=== PATIENT | male | born 1940 | race Caucasian/White ===

== ENCOUNTER 2022-10-21 05:32 | Inpatient (IN) | payer MEDICARE, OTHER, SELFPAY ==
[2022-10-21] VITALS (45 sets, daily range): BP systolic 114–177; BP diastolic 55–102; PULSE 76–106; RESP 14–23; TEMP 36.8–37.4; O2SAT 88–95; BMI 27.4
--- NOTE | 2022-10-21 05:41 | P.HP_ITS ---
Providers/Chief Complaint Admitting Physician: Ruma Brown MD Primary Care Provider: Dr Errol Richard Chief Complaint: UGIB History of Present Illness Quirino Avalos is a 82 year old male who presented to [facility] emergency room with complaint of nausea, vomiting with coffee-ground emesis for a couple of days. He has also had abdominal discomfort. He does have a history of gastroesophageal reflux disease and takes an [id number]-[id number] PPI for this. For the last few days he has been having abdominal pain in the epigastric region that has been escalating in severity. He has had multiple episodes, maybe 6-7, of coffee-ground emesis per day. No bright red blood has been noted. He has never had anything similar before. He is not on any chronic anticoagulation. At the outside facility he was tachycardic on arrival and was subsequently noted to be significantly orthostatic. Supine blood pressure 150/95 and pulse 106 Sitting blood pressure was 132/73 with pulse 117 Standing blood pressure 89/50 with pulse 125 He was given IV fluids and IV PPI. Heart rate improved to around 100. Request was made for transfer for endoscopy and further care as indicated. He has chronic constipation and benign prostatic hypertrophy. Has not had a bowel movement since but that timeframe is not unusual for him. Denies use of NSAID therapy beyond baby aspirin. The pain in his epigastric region is fairly constant. Currently that is his only complaint. He has not been sleeping well because of his symptoms. He has had significant dizziness particularly with standing or walking around. He also describes dyspnea on exertion. There is an element of this chronically but has been worse lately. Urinary symptoms including difficulty initiating stream of urine and dribbling of urine are at baseline. He wears diapers because of constant leakage. Denies chest pain other than epigastric discomfort. He has not had any falls. No report of any fevers. He does chew tobacco but denies swallowing any of it recently. He spits it out. Him and his at first thought that the coffee- ground appearance could be secondary to his chewing tobacco but he said it was different. Review of Systems General: Reports: Other (ROS as per HPI or as otherwise noted here) Medications/Allergies Allergies Allergy/AdvReac Type Severity Reaction Status Date / Time lisinopril Allergy Unknown Verified 10/21/22 05:59 simvastatin Allergy Unknown Verified 10/21/22 05:59 PFSH Acute PFSH: Medical History (Updated 10/21/22 @ 08:51 by Ruma Brown MD) Benign prostatic hyperplasia with lower urinary tract symptoms Chronic constipation Chronic kidney disease Depression GERD (gastroesophageal reflux disease) History of pulmonary embolus (PE) 2018 History of renal cell cancer History of shingles Hyperlipidemia Hypertension Osteoarthritis Surgical History (Updated 10/21/22 @ 06:15 by Ruma Brown MD) History of appendectomy History of foot surgery History of hernia repair History of nephrectomy right Social History (Updated 10/21/22 @ 06:29 by Ruma Brown MD) Smoking and tobacco status: current every day smoker smokeless tobacco Smokeless tobacco user: chewing tobacco Alcohol intake: former Substance/Drug Use: never Marital status: Vitals/I&O/Wt Blood pressure 157/92 supine, pulse 96, oxygen saturation 91% on room air, respirations 12 Physical Exam Narrative: Patient is awake and alert, able to provide history. Normocephalic, extraocular movements are intact, oropharynx with moist mucous membranes. Neck is supple. Lungs are clear. Cardiovascular exam reveals a regular rate and rhythm. Abdomen is soft. Epigastric tenderness is noted. No palpable masses. Positive bowel sounds. Extremities no pitting edema or calf tenderness. Pulses are 2+ and equal x4. Speech clear, face symmetric, moves all extremities Data 10/21/22 06:40 Other Labs: Labs from outside facility are as follows: White count 18,000, hemoglobin 12.8, hematocrit 38.5, platelet count 378, INR 1.0, PTT 28.3 Troponin I 0.018, CK-MB 1.8, CPK 124 Sodium 133, potassium 4.0, chloride 97, CO2 26, glucose 147, BUN 35, creatinine 1.4, total protein 8.1, albumin 4.8, globulin 3, calcium 9.9, total bilirubin 0.8, alkaline phosphatase 105, AST 30, ALT 24, osmolality 287, estimated GFR 51, lipase 33 Flat and upright KUB with no air-fluid levels or free air, stool noted in the bowel along with clips from right nephrectomy visualized A&P Assessment and plan (1) Upper GI bleed: Several days of coffee-ground emesis now associated with significant orthostas is, dizziness and general malaise. Hemoglobin is 12.8 presently. (2) Orthostasis: Severe with more than 60 mmHg drop from supine to sitting position (3) GERD (gastroesophageal reflux disease): Chronically on PPI (4) Hypertension: Not on chronic treatment (5) Chronic kidney disease: Chronic kidney disease stage IIIa from available information notable because he only has a single kidney (6) Single kidney: Secondary to history of renal cell carcinoma leading to right nephrectomy (7) Benign prostatic hyperplasia with lower urinary tract symptoms: On chronic Flomax and finasteride with continued lower urinary tract symptoms (8) Chronic constipation: Has lactulose as needed for management (9) Nicotine dependence, chewing tobacco, uncomplicated: Plan Leukocytosis, may be reactive/translocation but given history of BPH could also be urine infection Inpatient admission N.p.o. IV PPI Surgical consultation for EGD Repeat hemoglobin here IV fluids Recheck orthostatics Given severity of orthostasis presently, monitoring blood pressures presently and avoiding overuse of antihypertensive agents Repeat chemistries in the morning Monitor renal function closely and avoid renal toxic medications Currently home Flomax and finasteride are held due to n.p.o. status Dean catheter as he is unable to urinate without standing up and with severe orthostasis I do not want him attempting to stand presently Check urinalysis EKG preprocedure Will need to address constipation but currently n.p.o. and will await surgical evaluation Supportive care otherwise Findings, concerns and plans were discussed with patient and his and both were given an opportunity to ask questions VTE prophylaxis: SCDs, no pharmacological DVT prophylaxis secondary to upper GI bleed GI Prophylaxis: IV PPI Telemetry: Currently ordered for close monitoring given sinus tachycardia and orthostasis Dean: Ordered secondary to degree of orthostasis and BPH Line(s): Peripheral IVs Disposition plan: Anticipate discharge home with close outpatient follow-up to Dr. Richard, his primary care provider as well as possibly general surgery depending on clinical course with potential adjustment in PPI dosing plus or minus additional GI agents Code Status: Full code Attestations Medical Necessity Statement*: Anticipated stay greater than two midnights in this 82-year-old gentleman with several days of coffee-ground emesis now with significant orthostasis and epigastric pain concerning for ulcerative disease. Although hemoglobin is currently normal range, at high risk for rapid drop in hemoglobin with continued vomiting and progression of GI pathology. Given single kidney, also at risk of acute on chronic kidney disease and associated morbidity from this with ongoing hypotension. Plans are as noted. and Moderate Time for a total of 60 minutes, includes reviewing past or interval history, examining/interviewing patient, placing orders, discussing plan of care with staff and documenting encounter Diagnoses Upper GI bleed K92.2 Orthostasis I95.1 GERD (gastroesophageal reflux disease) K21.9 Hypertension I10 Chronic kidney disease N18.9 Single kidney Z90.5 Benign prostatic hyperplasia with lower urinary tract symptoms N40.1 Chronic constipation K59.09 Nicotine dependence, chewing tobacco, uncomplicated F17.220
[2022-10-21 06:50] LABS: Basophils % 0.2 %; Hematocrit 36.3 % (42.0-52.0); Hemoglobin 11.8 g/dL (11.7-16.6); Lymphocytes # 1.6 10^3/uL (0.8-4.8); Mean Corpuscular HGB Conc 32.5 g/dL (30.0-36.0); Mean Corpuscular Hemoglobin 27.5 pg (28.0-34.0); Mean Corpuscular Volume 84.6 fl (80-94); Mean Platelet Volume 9.8 fL (7.4-10.4); Neutrophils # 14.58 10^3/uL (1.8-7.7); Neutrophils % 84.4 %; Nucleated Red Blood Cells % 0 %; Platelet Count 332 10^3/cmm (130-400); Red Blood Count 4.29 10^6/uL (4.1-5.3); Red Cell Distribution Width 14.8 % (12.1-15.1); White Blood Count 17.3 10^3/uL (4.0-10.0)
--- NOTE | 2022-10-21 07:25 | PC.NURSE ---
Patient arrived at the ICU bed 3 at 0520. Vital signs were stable on arrival and report was received.
--- NOTE | 2022-10-21 09:08 | PC.PHAR ---
pt and pts states the pt takes the medications entered-pt and pts states the pts dr shaw rabeprazole 20mg daily filled 09/14/22 30d/s,finasteride 5mg hs filled 09/06/22 30d/s-melatonin 10mg hs filled 08/16/22 120d/s-mirtazapine 15mg filled 08/14/22 30d/s-pepcid 40mg daily filled 07/20/22 30d/s and prozac 10mg daily filled 06/10/22 90d/s states the dr shaw 3 weeks ago-
--- NOTE | 2022-10-21 10:04 | ECG_ITS ---
[facility] Test Date: 2022-10-21 Pat Name: Quirino Avalos Department: Room: ICU03 Gender: Male Video Library Assistant: : 1940 Requested By: Ruma Brown Order Number: [id number] Donnie MD: Genoveva Irwin M.D. Measurements Intervals [place] Rate: 87 P: 22 OR: 210 QRS: 4 QRSD: 86 T: 80 QT: 378 QTc: 457 Interpretive Statements SINUS RHYTHM WITH FIRST DEGREE AV BLOCK NONSPECIFIC T-WAVE ABNORMALITY No previous ECG available for comparison Electronically Signed On 10-21-2022 11:09:19 CDT by Genoveva Irwin M.D. [id number]
--- NOTE | 2022-10-21 10:20 | PM.CONSULT ---
Providers/Reason For Consult Consulting Physician/Specialty*: Dr. Thomas Roberts DO/General surgery Reason for Consult*: Hematemesis Attending Physician: Errol Shafer MD Primary Care Provider: Errol Richard History of Present Illness History of Present Illness Quirino Avalos is a 82 year old male who presented to the hospital with a 1 day history of coffee-ground emesis. He reports that he was having heartburn for the last 5 days. He denies any abdominal pain, diarrhea, constipation, hematochezia and/or melena. Review of Systems General: Reports: 10 or more systems reviewed and unremarkable except in HPI and below Medications/Allergies Home Medications Medication Instructions Recorded Confirmed Last Taken Type aspirin 81 mg tablet,delayed 81 mg PO QAM 10/21/22 10/21/22 Unknown History release calcium carbonate 750 1 tab PO TID PRN Heartburn 10/21/22 10/21/22 Unknown History mg-simethicone 80 mg chewable tablet ([place] [facility]burn-Gas) lactulose 10 gram/15 mL oral 15 ml PO DAILY PRN Constipation 10/21/22 10/21/22 Unknown History solution tamsulosin 0.4 mg capsule 0.4 mg PO BEDTIME 10/21/22 10/21/22 Unknown History Allergies Allergy/AdvReac Type Severity Reaction Status Date / Time lisinopril Allergy Unknown Verified 10/21/22 05:59 simvastatin Allergy Unknown Verified 10/21/22 05:59 PFSH Acute PFSH: Medical History (Updated 10/21/22 @ 10:21 by Thomas Roberts DO) Benign prostatic hyperplasia with lower urinary tract symptoms Chronic constipation Chronic kidney disease Depression GERD (gastroesophageal reflux disease) History of pulmonary embolus (PE) 2018 History of renal cell cancer History of shingles Hyperlipidemia Hypertension Osteoarthritis Surgical History (Updated 10/21/22 @ 06:15 by Ruma Brown MD) History of appendectomy History of foot surgery History of hernia repair History of nephrectomy right Social History (Updated 10/21/22 @ 06:29 by Ruma Brown MD) Smoking and tobacco status: current every day smoker smokeless tobacco Smokeless tobacco user: chewing tobacco Alcohol intake: former Substance/Drug Use: never Marital status: Vitals/I&O/Wt Last Vital Signs Temp 98.2 F 10/21/22 05:42 Pulse 102 H 10/21/22 06:00 Resp 17 10/21/22 05:42 BP 155/92 10/21/22 05:42 Pulse Ox 92 10/21/22 05:42 O2 Del Method Room Air 10/21/22 05:43 Weight last 48 hrs Weight 208 lb 3 oz Weight 208 lb 3 oz Physical Exam Narrative: General : Patient is well developed , no acute distress, oriented x3 Head : Normal cephalic, a-traumatic. Ears : Pinnae and external canal are normal. Hearing is normal. Eyes : PERRLA, Sclera and injection are normal. No conjunctival discharge. Nose : Mucous membranes are without erythema. Throat : buccal mucosa is normal, gums are without significant recession or hypertrophy. Lungs : Equal chest rise bilaterally, no use of accessory muscles, trachea is midline. Cor : Rate and rhythm are normal. Abdomen : Soft, ND, NT, no g/r/m Extremities : No edema, no cyanosis or clubbing, dorsalis pedis pulses are present bilaterally, non-tender to palpation of calves. Upper extremities are normal bilaterally. Back : non-tender to palpation, no CVA tenderness. Neuro : CN II - XII intact, Upper and lower extremities have equal and full strength Urinary Catheter Management: Dean: Cath Placed During This Visit: yes Urinary Catheter Date of Insertion: 10/21/22 Urinary Catheter Time of Insertion: 07:45 Data 10/21/22 06:40 A&P Assessment and plan (1) Hematemesis: Plan EGD The risks and benefits of the procedure, including bleeding, infection, intestinal perforation requiring surgery, missed lesion were explained to the patient. The patient is understanding of the risks and wishes to proceed. Coding Level of Care Code 40476 Diagnoses Hematemesis K92.0
[2022-10-21] MEDS: sodium chloride 0.9% 1,000 ML 30 ML IV (10:24)
--- NOTE | 2022-10-21 10:54 | PC.NURSE ---
Pt back to ICU from GI Lab. EGD completed. VSS.
[2022-10-21] MEDS: sodium chlor 0.9% + KCl 20 mEq 20 MEQ/1,000 ML BAG 125 MEQ IV ×2 (11:04→19:35)
[2022-10-21] MEDS: sucralfate 1 gm/10 mL Oral Liq UDC PO ×3 (11:05→22:41)
[2022-10-21 11:12] LABS: Add Urine Microscopic? YES; Bilirubin Urine Neg (Negative); Blood Urine 2+ (Negative); Glucose Urine UA Norm (Normal); Ketones Urine 1+ (Negative); Leukocyte Esterase Urine Negative (Negative); Nitrate Urine Negative (Negative); Protein Urine 1+ (Negative); Specific Gravity, Urine 1.015 (1.005-1.030); Urine Appearance Clear (CLEAR); Urine Color Yellow (Yellow); Urobilinogen Urine Norm (Negative); pH Urine 6 (5-7)
[2022-10-21 11:13] LABS: Add Urine Culture? No; Bacteria Urine TRACE /hpf; Squamous Epithelial Cell Urine 0-4 /hpf (0-5)
[2022-10-21 12:28] LABS: Hematocrit 35.2 % (42.0-52.0); Hemoglobin 11.3 g/dL (11.7-16.6)
[2022-10-21] MEDS: alum-mag-hydroxide-sime 30 mL UDC PO (14:14)
[2022-10-21] MEDS: pantoprazole 40 mg SDV 80 MG IVP (14:15)
--- NOTE | 2022-10-21 16:44 | ANES.PREANE2 ---
Pre-Anesthetic Assessment Height/Weight: Height 1.85 m Weight 94.432 kg Temp Pulse Resp BP Pulse Ox O2 Del Method O2 Flow Rate 99.2 F 85 21 H 155/86 90 Room Air 5 10/21/22 14:00 10/21/22 16:00 10/21/22 16:00 10/21/22 16:00 10/21/22 16:00 10/21/22 16:00 10/21/22 13:05 Operation Date: 10/21/22 10:30 Proposed Procedures p EGD(Not Applicable) - Thomas Roberts DO Familial anesthetic complications: none Was Beta Cristiana taken within 24 hours: N/A Was Clonidine taken within 24 hours: N/A Social Tobacco and No alcohol Exam alert, oriented x 3, clear to auscultation bilaterally and regular rate & rhythm Airway Submandibular: within normal limits Cervical ROM: within normal limits Mallampati: Class II Dentition: false (upper) Pulmonary Chronic Obstructive Pulmonary Disease CV/HEM Anemia and Hypertension Chronic Renal Insufficiency GI GI bleed Anesthetic Plan ASA status: 3 Anesthesia: MAC Medications/Allergies Home Medications Medication Instructions Recorded Confirmed Last Taken Type aspirin 81 mg tablet,delayed 81 mg PO QAM 10/21/22 10/21/22 Unknown History release calcium carbonate 750 1 tab PO TID PRN Heartburn 10/21/22 10/21/22 Unknown History mg-simethicone 80 mg chewable tablet ([place] Heartburn-Gas) lactulose 10 gram/15 mL oral 15 ml PO DAILY PRN Constipation 10/21/22 10/21/22 Unknown History solution tamsulosin 0.4 mg capsule 0.4 mg PO BEDTIME 10/21/22 10/21/22 Unknown History Allergies Allergy/AdvReac Type Severity Reaction Status Date / Time lisinopril Allergy Unknown Verified 10/21/22 05:59 simvastatin Allergy Unknown Verified 10/21/22 05:59 Current Medications Generic Name Dose Route Start Last Admin Trade Name Freq PRN Reason Stop Dose Admin Al Hydrox/Mg Hydrox/Simethicone 30 ml 10/21/22 13:25 10/21/22 14:14 Ugrg-Wca-Zbbxoqpso-Peewee 30 Ml Udc PO 30 ml Q4H PRN Administration INDIGESTION Potassium Chloride/Sodium Chloride 20 meq in 1,000 mls @ 125 mls/hr 10/21/22 09:00 10/21/22 11:04 Sodium Chlor 0.9% + Kcl 20 Meq IV 125 mls/hr .Q8H COONR Administration Sodium Chloride 1,000 mls @ 30 mls/hr 10/21/22 10:15 10/21/22 10:45 Sodium Chloride 0.9% IV 10/22/22 10:14 Infused .Q24H CONOR Infusion Pantoprazole Sodium 80 mg 10/21/22 14:00 10/21/22 14:15 Pantoprazole 40 Mg Sdv IVP 80 mg Q12H CONOR Administration Sucralfate 1 gm 10/21/22 11:00 10/21/22 11:05 Sucralfate 1 Gm/10 Ml Oral Liq Udc PO 1 gm AC&BEDTIME CONOR Administration PFSH Anesthesia Medical History (Updated 10/21/22 @ 10:21 by Thomas Roberts DO) Benign prostatic hyperplasia with lower urinary tract symptoms Chronic constipation Chronic kidney disease Depression GERD (gastroesophageal reflux disease) History of pulmonary embolus (PE) 2018 History of renal cell cancer History of shingles Hyperlipidemia Hypertension Osteoarthritis Surgical History (Updated 10/21/22 @ 06:15 by Ruma Brown MD) History of appendectomy History of foot surgery History of hernia repair History of nephrectomy right Social History (Updated 10/21/22 @ 06:29 by Ruma Brown MD) Smoking and tobacco status: current every day smoker smokeless tobacco Smokeless tobacco user: chewing tobacco Alcohol intake: former Substance/Drug Use: never Marital status: Data Anesthesia 10/21/22 12:21 Short CBC 10/21/22 10/21/22 Range/Units 06:40 12:21 WBC 17.3 H (4.0-10.0) 10^3/uL Hgb 11.8 11.3 L (11.7-16.6) g/dL Hct 36.3 L 35.2 L (42.0-52.0) % MCV 84.6 (80-94) fl Plt Count 332 (130-400) 10^3/cmm Neut % (Auto) 84.4 % Neut # (Auto) 14.58 H (1.8-7.7) 10^3/uL Urine 10/21/22 Range/Units 09:00 Urine Color Yellow (Yellow) Urine Appearance Clear (CLEAR) Urine pH 6 (5-7) Ur Specific [place] 1.015 (1.005-1.030) Urine Protein 1+ H (Negative) Urine Glucose (UA) Norm (Normal) Urine Ketones 1+ H (Negative) Urine Nitrate Negative (Negative) Urine Bilirubin Neg (Negative) Ur Leukocyte Esterase Negative (Negative) Urine RBC 5-10 H (0-2) /hpf Urine WBC None (0-5) /hpf Blood Bank 10/21/22 07:24 Blood Type O Positive Rho(D) Type Positive Antibody Screen Negative Cardiac Studies: No Data to Display
--- NOTE | 2022-10-21 16:47 | ANE.PACU2 ---
Inpatient post-anesthesia follow up: Airway intact: Yes Vital signs: Temperature 99.2 F Pulse Rate 85 Respiratory Rate 21 Blood Pressure 155/86 Pulse Oximetry 90 Oxygen Delivery Me thod Room Air Oxygen Flow Rate 5 Fraction of Inspir ed Oxygen Hydration adequate: Yes Nausea and vomiting: No Pain level: 2 Mental status: Baseline
[2022-10-21 18:13] LABS: Hematocrit 34.3 % (42.0-52.0)
--- NOTE | 2022-10-21 19:43 | PC.NURSE ---
Chest Pain: Pt reporting 3/10 pain in the center of his chest @approximately 1920. EKG preformed and printed copy placed in paper chart. Pain improved when raising the head of the bed.
--- NOTE | 2022-10-21 19:45 | PC.NURSE ---
Shift summary: Pt has rested in bed throughout shift. No complaints of nausea or vomiting. He did have EGD completed today, See EMR for findings. Pt has complained of heartburn since procedure. He was started on Sucralfate. he is also on Protonix. Maalox PRN was started today. After receiving a dose of Maalox with the Protonix that was due, pt did state his heartburn lessened. No coffee grounds emesis or melana stools this shift. VSS. he remains on room air with clear lungs. Sinus rhythm noted on monitor. He has tolerated being NPO well this shift. Dean cath inserted this am, significant amount of resistance met on insert. Pt tolerated well. His urinary output this shift was 1925. His is at bedside.
[2022-10-22] VITALS (28 sets, daily range): BP systolic 104–181; BP diastolic 46–102; PULSE 64–96; RESP 15–32; TEMP 36.8–37.1; O2SAT 90–95
[2022-10-22] MEDS: pantoprazole 40 mg SDV 80 MG IVP (02:41)
[2022-10-22] MEDS: sodium chlor 0.9% + KCl 20 mEq 20 MEQ/1,000 ML BAG 125 MEQ IV (03:25)
[2022-10-22 05:00] LABS: Basophils % 0.3 %; Eosinophils # 0.1 10^3/uL (0.0-0.8); Eosinophils % 0.6 %; Hematocrit 30.6 % (42.0-52.0); Hemoglobin 9.7 g/dL (11.7-16.6); Lymphocytes # 1.9 10^3/uL (0.8-4.8); Lymphocytes % 17.1 %; Mean Corpuscular HGB Conc 31.7 g/dL (30.0-36.0); Mean Corpuscular Hemoglobin 27.4 pg (28.0-34.0); Mean Corpuscular Volume 86.4 fl (80-94); Mean Platelet Volume 10.5 fL (7.4-10.4); Monocytes # 1.1 10^3/uL (0.2-0.9); Monocytes % 10.1 %; Neutrophils # 7.95 10^3/uL (1.8-7.7); Neutrophils % 71.6 %; Nucleated Red Blood Cells % 0 %; Platelet Count 237 10^3/cmm (130-400); Red Blood Count 3.54 10^6/uL (4.1-5.3); Red Cell Distribution Width 15.3 % (12.1-15.1); White Blood Count 11.1 10^3/uL (4.0-10.0)
[2022-10-22 05:20] LABS: Anion Gap 13.3 (5-19); Blood Urea Nitrogen 30 mg/dL (8-23); Calcium 8.3 mg/dL (8.5-10.5); Carbon Dioxide 22 mmol/L (22-29); Chloride 105 mmol/L (98-107); Glucose 101 mg/dL (65-115); Osmolality Calculated 288 mOsm/kg (285-295); Potassium 4.3 mmol/L (3.5-5.1); Sodium 136 mmol/L (136-145)
[2022-10-22] MEDS: sucralfate 1 gm/10 mL Oral Liq UDC PO ×4 (06:15→20:15)
[2022-10-22] MEDS: pantoprazole 40 mg SDV IVP ×2 (09:28→20:15)
--- NOTE | 2022-10-22 09:34 | PM.PN ---
Subjective Subjective: Patient reports persistent epigastric discomfort overnight but states it is improved from prior. He is currently pain-free at the moment. Per report, he still orthostatic upon standing. Denies further hematemesis/coffee-ground emesis. Patient denies fevers, chills, nausea or emesis. Spouse is bedside and supportive. Medications: Reviewed: Yes Vitals/I&O/Wt Last Vital Signs Temp 98.2 F 10/21/22 20:00 Pulse 70 10/22/22 08:00 Resp 24 H 10/22/22 08:00 BP 149/74 10/22/22 08:00 Pulse Ox 94 10/22/22 08:00 O2 Del Method Room Air 10/22/22 08:00 O2 Flow Rate 2 10/22/22 04:00 10/21/22 10/22/22 10/22/22 22:59 06:59 14:59 Intake Total 1000 / 1250 979.167 / 2229.167 Output Total 1925 / 1925 800 / 2725 Balance -925 / -675 179.167 / -495.833 Weight last 48 hrs Weight 95.98 kg Weight 94.432 kg Weight 94.432 kg Physical Exam Narrative: General: Patient is awake. Alert. Head: Normocephalic. Atraumatic. EOM intact. Neck: No JVD. Cardiovascular: RRR. No gallops. No murmurs. Lungs: Breath sounds are slightly diminished in the bases, no use of accessory muscles, no crackles or wheezes. Skin: No jaundice. No rashes. Abdomen: Normal bowel sounds, abdomen soft and nontender. Extremities: No cyanosis or clubbing. Musculoskeletal: No swollen or erythematous joints. Neurological: Moves all 4 extremities. No myoclonus. Urinary Catheter Management: Dean: Cath Placed During This Visit: yes Reason for Continuing Indwelling Catheter: Accurate Measurement of Urinary Output in Critically Ill Patients Urinary Catheter Date of Insertion: 10/21/22 Urinary Catheter Time of Insertion: 07:45 Data 10/22/22 04:01 10/22/22 04:01 A&P Assessment and plan (1) Upper GI bleed: Associated with acute blood loss anemia General surgery evaluated, appreciate recommendations Status post EGD revealing esophagitis Hemoglobin at 9.7 Continue IV PPI Continue Carafate Antiemetics and analgesics as needed Holding home aspirin Advance diet if okay with general surgery Continue IV fluids until diet starts (2) Orthostasis: Secondary to hypovolemia from blood loss Repeat orthostatics today Therapy evaluation Fall precautions Strict I's and O's Daily weights (3) GERD (gastroesophageal reflux disease): PPI as above (4) Hypertension: Not on home pharmacological treatment Orthostatic (5) Chronic kidney disease: Single kidney CKD stage IIIa Creatinine at baseline Renally dose medications Avoid nephrotoxins (6) Single kidney: Secondary to right nephrectomy from RCC (7) Benign prostatic hyperplasia with lower urinary tract symptoms: Holding Flomax due to orthostasis Continue Dean for now (8) Chronic constipation: Lactulose as needed (9) Nicotine dependence, chewing tobacco, uncomplicated: Would benefit from cessation Plan DVT ppx: SCD Code status: Full Attestations Medical Necessity Statement*: Patient requires ongoing hospitalization for IV PPI, carafate, labs monitoring, telemetry, IV fluids, electrolyte management, therapy evaluation, and supportive care. Coding Level of Care Code Acute Code for [facility] Fwd Diagnoses Upper GI bleed K92.2 Orthostasis I95.1 GERD (gastroesophageal reflux disease) K21.9 Hypertension I10 Chronic kidney disease N18.9 Single kidney Z90.5 Benign prostatic hyperplasia with lower urinary tract symptoms N40.1 Chronic constipation K59.09 Nicotine dependence, chewing tobacco, uncomplicated F17.220
[2022-10-22] MEDS: acetaminophen 650 mg/20.3 mL UDC 1000 MG PO (12:22)
[2022-10-22] MEDS: dextrose 5%-sod chloride 0.45% 1,000 ML 75 ML IV (17:07)
[2022-10-22] MEDS: ondansetron 2 mg/ML SDV 2 mL 4 MG IVP (18:21)
[2022-10-22] MEDS: oxyCODONE 5 mg IR Tab/Cap PO (23:11)
[2022-10-23] VITALS (30 sets, daily range): BP systolic 117–177; BP diastolic 62–101; PULSE 60–92; RESP 16–35; TEMP 36.6–37.1; O2SAT 88–97
[2022-10-23] MEDS: oxyCODONE 5 mg IR Tab/Cap PO ×3 (04:05→21:13)
[2022-10-23 05:27] LABS: Basophils % 0.4 %; Eosinophils # 0.3 10^3/uL (0.0-0.8); Eosinophils % 3.2 %; Hematocrit 30.4 % (37-53); Lymphocytes # 1.9 10^3/uL (0.8-4.8); Lymphocytes % 18.9 %; Mean Corpuscular HGB Conc 31.9 g/dL (30-55); Mean Corpuscular Hemoglobin 27.6 pg (27-33); Mean Corpuscular Volume 86.6 fl (82-101); Mean Platelet Volume 10.2 fL (7.4-10.4); Monocytes # 1.1 10^3/uL (0.2-0.9); Monocytes % 10.7 %; Neutrophils # 6.47 10^3/uL (1.8-7.7); Neutrophils % 66.3 %; Nucleated Red Blood Cells % 0 %; Platelet Count 253 10^3/cmm (157-399); Red Blood Count 3.51 10^6/uL (3.85-5.65); Red Cell Distribution Width 14.9 % (12.1-15.1); White Blood Count 9.77 10^3/uL (3.29-11.43)
[2022-10-23 05:58] LABS: Albumin Level 3.7 g/dL (3.5-5.2); Anion Gap 14.8 (5-19); Blood Urea Nitrogen 20 mg/dL (8-23); Calcium 8.2 mg/dL (8.5-10.5); Carbon Dioxide 20 mmol/L (22-29); Chloride 104 mmol/L (98-107); Glucose 114 mg/dL (65-115); Phosphorus 2.3 mg/dL (2.5-4.5); Potassium 3.8 mmol/L (3.5-5.1); Sodium 135 mmol/L (136-145)
[2022-10-23] MEDS: dextrose 5%-sod chloride 0.45% 1,000 ML 75 ML IV (06:16)
[2022-10-23] MEDS: sucralfate 1 gm/10 mL Oral Liq UDC PO ×4 (06:18→21:11)
[2022-10-23] MEDS: pantoprazole 40 mg SDV IVP ×2 (08:58→21:11)
[2022-10-23] MEDS: acetaminophen 650 mg/20.3 mL UDC 1000 MG PO (09:39)
[2022-10-23 10:49] LABS: Iron 37 ug/dL (59-158); Percent Saturation 12.5 % (20-50); Total Iron Binding Capacity 296 mcg/dl; Unsaturated Iron Binding 259 ug/dL (112-347); Vitamin B12 613 pg/mL (232-1245)
[2022-10-23] MEDS: amlodipine 5 mg Tablet PO (11:21)
[2022-10-23] MEDS: alum-mag-hydroxide-sime 30 mL UDC 15 ML PO (11:21)
--- NOTE | 2022-10-23 17:04 | P.PN_ITS ---
Subjective Subjective: Hospital course, labs appreciated. Patient laying comfortably in bed. Complaining of difficulty and painful swallowing solids and liquids. Denies any heartburn. Not able to have intake because of the same. He is agreeable to try liquid diet. Blood pressure is elevated though mildly orthostatic positive with dizziness. Did receive amlodipine earlier today morning for elevated blood pressures up to 160 systolics. Seen with family at bedside. Blood work appreciated for a stable hemoglobin at around 9.7, creatinine of 1.4 on BMP which is trending down from 1.5 from yesterday. Medications: Reviewed: Yes Vitals/I&O/Wt Last Vital Signs Temp 98.4 F 10/23/22 16:00 Pulse 66 10/23/22 16:00 Resp 24 H 10/23/22 16:00 BP 133/69 10/23/22 16:00 Pulse Ox 90 10/23/22 16:00 O2 Del Method Room Air 10/23/22 16:00 O2 Flow Rate 2 10/22/22 04:00 10/23/22 10/23/22 10/23/22 06:59 14:59 22:59 Intake Total 770 / 1826.667 150 / 150 Output Total 800 / 1500 Balance -30 / 326.667 150 / 150 Weight last 48 hrs Weight 95.527 kg Weight 95.98 kg Physical Exam Narrative: General: Tired appearing, in distress because of difficulty swallowing, AOx3, pallor present Head: Normocephalic. Atraumatic. EOM intact. Neck: No JVD. Cardiovascular: RRR. No gallops. No murmurs. Lungs: Breath sounds are slightly diminished in the bases, no use of accessory muscles, no crackles or wheezes. Skin: No jaundice. No rashes. Abdomen: Normal bowel sounds, abdomen soft and nontender. Extremities: No cyanosis or clubbing. Musculoskeletal: No swollen or erythematous joints. Neurological: Moves all 4 extremities. No myoclonus. Urinary Catheter Management: Dean: Cath Placed During This Visit: yes Reason for Continuing Indwelling Catheter: Accurate Measurement of Urinary Output in Critically Ill Patients Urinary Catheter Date of Insertion: 10/21/22 Urinary Catheter Time of Insertion: 07:45 Data 10/23/22 04:29 10/23/22 04:29 A&P Assessment and plan (1) Upper GI bleed: Associated with acute blood loss anemia. Post endoscopy where he was found to have severe esophagitis. Hemoglobin stable. Continue with Protonix twice daily, Carafate. Zofran as needed. Patient complaining of dysphagia with liquids and solids. We will try Maalox and Magic mouthwash prior to meals. Switch to liquid diet for now. If persistently symptomatic we will plan for barium swallow. Check iron panel, vitamin B12 and folate levels. (2) Orthostasis: Hypovolemic in setting of blood loss. Blood pressure elevated. Did become orthostatic after giving amlodipine. Hold off on amlodipine. Continue with Flomax at home dose. DC Dean catheter. Orthostatic chest every shift. (3) GERD (gastroesophageal reflux disease): PPI as above (4) Hypertension: Goal blood pressure less than 140/90 mmHg. Not on medication at home. Blood pressure elevated but orthostatic positive for now. 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 (8) Chronic constipation: Lactulose as needed (9) Nicotine dependence, chewing tobacco, uncomplicated: Would benefit from cessation Plan DVT ppx: SCD Code status: Full Protonix [facility] Attestations Medical Necessity Statement*: Requires further hospitalization for management of acute blood loss anemia in setting of upper GI bleed, post EGD oropharyngeal dysphagia Diagnoses Upper GI bleed K92.2 Orthostasis I95.1 GERD (gastroesophageal reflux disease) K21.9 Hypertension I10 Chronic kidney disease N18.9 Single kidney Z90.5 Benign prostatic hyperplasia with lower urinary tract symptoms N40.1 Chronic constipation K59.09 Nicotine dependence, chewing tobacco, uncomplicated F17.220
[2022-10-23] MEDS: sodium chloride 0.9% 500 ML 999 ML IV (17:42)
[2022-10-23] MEDS: phenol oral Spray 177 mL 3 SPRAY MUCOUS MEM (17:42)
[2022-10-23] MEDS: sodium chloride 0.9% 1,000 ML 50 ML IV (18:50)
[2022-10-23] MEDS: tamsulosin 0.4 mg Capsule PO (21:10)
[2022-10-24] VITALS (25 sets, daily range): BP systolic 122–171; BP diastolic 57–96; PULSE 67–96; RESP 15–31; TEMP 36.7–37.6; O2SAT 91–95
[2022-10-24 04:59] LABS: Basophils % 0.4 %; Eosinophils # 0.3 10^3/uL (0.0-0.8); Eosinophils % 3.6 %; Lymphocytes # 1.6 10^3/uL (0.8-4.8); Lymphocytes % 18.3 %; Mean Corpuscular HGB Conc 31.3 g/dL (30-55); Mean Corpuscular Hemoglobin 27.6 pg (27-33); Mean Corpuscular Volume 88.3 fl (82-101); Mean Platelet Volume 11.3 fL (7.4-10.4); Monocytes % 11.7 %; Neutrophils # 5.63 10^3/uL (1.8-7.7); Neutrophils % 65.8 %; Nucleated Red Blood Cells % 0 %; Platelet Count 246 10^3/cmm (157-399); Red Blood Count 3.51 10^6/uL (3.85-5.65); Red Cell Distribution Width 15.2 % (12.1-15.1); White Blood Count 8.56 10^3/uL (3.29-11.43)
[2022-10-24 05:15] LABS: Chol HDL Ratio 5.13 mg/dL (1.0-5.00); Cholesterol 164 mg/dL (0-200); HDL Cholesterol 32 mg/dL (60-100); LDL Cholesterol Calculated 99 mg/dL (50-129); Triglycerides 164 mg/dL (0-150); VLDL Cholestrol Calculation 33 mg/dL (0-30)
[2022-10-24 05:20] LABS: Alanine Aminotransferase 9 U/L (0-41); Albumin Level 3.6 g/dL (3.5-5.2); Alkaline Phosphatase 96 U/L (40-130); Anion Gap 15.9 (5-19); Aspartate Amino Transferase 17 U/L (0-40); Blood Urea Nitrogen 15 mg/dL (8-23); Calcium 8.2 mg/dL (8.5-10.5); Carbon Dioxide 19 mmol/L (22-29); Chloride 104 mmol/L (98-107); Globulin 2.8 g/dL (1.3-4.6); Glucose 98 mg/dL (65-115); Osmolality Calculated 281 mOsm/kg (285-295); Potassium 3.9 mmol/L (3.5-5.1); Sodium 135 mmol/L (136-145); Total Bilirubin 0.3 mg/dL (0.15-1.2); Total Protein 6.4 g/dL (6.6-8.7)
[2022-10-24 05:29] LABS: Folate Level 4.1 ng/mL (4.5-32.2)
[2022-10-24 05:57] LABS: Estmated Average Glucose 128; Hemoglobin A1C 6.1 % (4.0-6.0)
[2022-10-24 06:07] LABS: Slide Review Slide Review Perform
[2022-10-24] MEDS: sucralfate 1 gm/10 mL Oral Liq UDC PO ×4 (06:14→20:31)
[2022-10-24] MEDS: pantoprazole 40 mg SDV IVP ×2 (08:17→20:31)
[2022-10-24 10:24] LABS: Free T4 Free Thyroxine 0.89 ng/dL (0.82-1.77); T3 Free 2.2 PG/ML (2.0-4.4)
[2022-10-24] MEDS: folic acid 1 mg Tablet PO ×2 (11:00→17:20)
--- NOTE | 2022-10-24 11:24 | PC.SOCIAL ---
Pg 2 IMM Explained to pt Pg 2 IMM. No questions voiced. Provided pt a copy. Initialed. dated, & timed a copy & placed in chart.
--- NOTE | 2022-10-24 16:17 | P.PN_ITS ---
Subjective Subjective: No acute events overnight. Patient examination lying comfortably today. Yesterday after removing Dean he did not have urine output for around 7 hours with low urine in bladder with a bladder scanner hence started on IV fluids. Today morning states swallowing is little better with liquids. Denies any nausea. Denies any dizziness. Vitals better on room air. Blood work showed a stable hemoglobin at 9.7, CMP showing a creatinine of 1.4 which is stable as yesterday. Medications: Reviewed: Yes Vitals/I&O/Wt Last Vital Signs Temp 97.8 F 10/23/22 20:00 Pulse 71 10/24/22 15:00 Resp 20 H 10/24/22 15:00 BP 140/82 10/24/22 15:00 Pulse Ox 94 10/24/22 09:00 O2 Del Method Room Air 10/24/22 06:00 O2 Flow Rate 2 10/22/22 04:00 10/24/22 10/24/22 10/24/22 06:59 14:59 22:59 Intake Total 250 / 2095 Output Total 800 / 800 Balance 250 / 970 -800 / -800 Weight last 48 hrs Weight 95.527 kg Physical Exam Narrative: General: Tired appearing, in distress because of difficulty swallowing, AOx3, pallor present Head: Normocephalic. Atraumatic. EOM intact. Neck: No JVD. Cardiovascular: RRR. No gallops. No murmurs. Lungs: Breath sounds are slightly diminished in the bases, no use of accessory muscles, no crackles or wheezes. Skin: No jaundice. No rashes. Abdomen: Normal bowel sounds, abdomen soft and nontender. Extremities: No cyanosis or clubbing. Musculoskeletal: No swollen or erythematous joints. Neurological: Moves all 4 extremities. No myoclonus. Urinary Catheter Management: Dean: Cath Placed During This Visit: yes Reason for Continuing Indwelling Catheter: Accurate Measurement of Urinary Output in Critically Ill Patients Urinary Catheter Date of Insertion: 10/21/22 Urinary Catheter Time of Insertion: 07:45 Data 10/24/22 04:03 10/24/22 04:03 A&P Assessment and plan (1) Upper GI bleed: Associated with acute blood loss anemia. Post endoscopy where he was found to have severe esophagitis. Hemoglobin stable. Continue with Protonix twice daily, Carafate. Zofran as needed. Patient complaining of dysphagia with liquids and solids. We will try Maalox and Magic mouthwash prior to meals. Switch to liquid diet for now. If persistently symptomatic we will plan for barium swallow. Check iron panel, vitamin B12 and folate levels. (2) Esophageal stricture: Patient continues to complain of dysphagia but better with liquid diet. Barium swallow today consistent with esophageal stricture at distal end consistent with peptic ulcer disease. Discussed with surgery most likely in set ting of severe esophagitis. Follow-up plan to continue with liquid diet with PPI therapy. If does not improve in 2 weeks most likely will need dilatation versus feeding through PEG tube for a short while while the ulcer heals. (3) Orthostasis: Blood pressure is better. Check orthostatic. Hold off on amlodipine. Continue with Flomax. Continue fluids for now. (4) GERD (gastroesophageal reflux disease): PPI as above (5) Hypertension: Goal blood pressure less than 140/90 mmHg. Not on medication at home. Blood pressure elevated but orthostatic positive for now. 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 (9) Chronic constipation: Lactulose as needed (10) Nicotine dependence, chewing tobacco, uncomplicated: Would benefit from cessation Plan DVT ppx: SCD Code status: Full Protonix OPD prophylaxis. Plan for the day: Out of bed to chair Continue liquid diet. Decrease IV fluid to 50 cc/h. Check orthostatics. Hold off on amlodipine. Continue with Flomax. Continue with PPIs and Carafate. Appreciate barium swallow results. Attestations Medical Necessity Statement*: Requires further hospitalization for management of orthostatic positive hypotension in setting of hypovolemia from hematemesis, esophageal stricture in setting of severe esophagitis Diagnoses Upper GI bleed K92.2 Esophageal stricture K22.2 Orthostasis I95.1 GERD (gastroesophageal reflux disease) K21.9 Hypertension I10 Chronic kidney disease N18.9 Single kidney Z90.5 Benign prostatic hyperplasia with lower urinary tract symptoms N40.1 Chronic constipation K59.09 Nicotine dependence, chewing tobacco, uncomplicated F17.220
--- NOTE | 2022-10-24 17:08 | FL_ITS ---
WS: [id number] MODIFIED BARIUM SWALLOW HISTORY: Pharyngoesoph. dysphagia FLUOROSCOPY TIME: 2min [id number] # of spot films: [id number] Modified barium swallow was performed by the speech pathologist. Fluoroscopy was provided with the pa tient in a lateral projection. Multiple food consistencies were provided. Patient swallowed food consistencies without difficulty. Mild cricopharyngeal spasm. No aspiration or laryngeal penetration. Patient did experience pain and discomfort in the mid chest. Mild dilatation of the distal esophagus with a focal hourglass shaped area of narrowing. Hiatal herni a. Barium tablet was able to proceed through the focal area of moderate stricture of the distal esoph tiffany. IMPRESSION: 1. No aspiration or laryngeal penetration. 2. Moderate distal esophageal stricture. Focal stricture is resulting in mild proximal dilatation of the esophagus. Patient has undergone a recent endoscopy of the esophagus which demonstrated esophagit is. Please see speech therapist report also for recommendations.
[2022-10-24] MEDS: sodium chloride 0.9% 1,000 ML 50 ML IV ×2 (17:21→22:14)
[2022-10-24] MEDS: tamsulosin 0.4 mg Capsule PO (20:31)
--- NOTE | 2022-10-24 21:39 | PC.NURSE ---
2119- report called to joann calvillo on ms. 2134- pt transferred to [facility] bed 254 bed 2, all belongings sent with patient.
[2022-10-25 04:21] VITALS: BP 159/78; PULSE 81; RESP 16; TEMP 36.8; O2SAT 93
[2022-10-25] MEDS: sucralfate 1 gm/10 mL Oral Liq UDC PO ×2 (06:37→10:06)
[2022-10-25 08:00] VITALS: BP 154/78; PULSE 75; RESP 16; TEMP 37; O2SAT 96
[2022-10-25] MEDS: pantoprazole DR 40 mg Tablet PO (10:00)
[2022-10-25] MEDS: folic acid 1 mg Tablet PO (10:00)
--- NOTE | 2022-10-25 10:41 | P.DS_ITS ---
Discharge Providers Date of Admission: 10/21/22 05:32 Date of Discharge: October 25, 2022 Attending Provider at Admission: Ruma Brown MD Attending Provider at Discharge: Rylan Delatorre MD Consults: Surgery : Dr. Roberts Primary Care Provider: Errol Richard Diagnoses at Discharge Discharge Diagnosis (1) Upper GI bleed: Status: Acute (2) Esophageal stricture: Status: Acute (3) Orthostasis: Status: Acute (4) GERD (gastroesophageal reflux disease): Status: Chronic (5) Hypertension: Status: Chronic (6) Chronic kidney disease: Status: Chronic (7) Single kidney: Status: Chronic (8) Benign prostatic hyperplasia with lower urinary tract symptoms: Status: Chronic (9) Chronic constipation: Status: Chronic (10) Nicotine dependence, chewing tobacco, uncomplicated: Status: Chronic Reason for Visit Reason for Visit: UGIB Brief History: History as per HPI: Quirino Avalos is a 82 year old male who presented to [facility] emergency room with complaint of nausea, vomiting with coffee-ground emesis for a couple of days.? He has also had abdominal discomfort.? He does have a history of gastroesophageal reflux disease and takes an [id number] PPI for this.? For the last few days he has been having abdominal pain in the epigastric region that has been escalating in severity.? He has had multiple episodes, maybe 6-7, of coffee-ground emesis per day.? No bright red blood has been noted.? He has never had anything similar before.? He is not on any chronic anticoagulation.? At the outside facility he was tachycardic on arrival and was subsequently noted to be significantly orthostatic. Supine blood pressure 150/95 and pulse 106 Sitting blood pressure was 132/73 with pulse 117 Standing blood pressure 89/50 with pulse 125 He was given IV fluids and IV PPI.? Heart rate improved to around 100.? Request was made for transfer for endoscopy and further care as indicated.? He has chronic constipation and benign prostatic hypertrophy.? Has not had a bowel movement since but that timeframe is not unusual for him.? Denies use of NSAID therapy beyond baby aspirin.? The pain in his epigastric region is fairly constant.? Currently that is his only complaint.? He has not been sleeping well because of his symptoms.? He has had significant dizziness particularly with standing or walking around.? He also describes dyspnea on exertion.? There is an element of this chronically but has been worse lately.? Urinary symptoms including difficulty initiating stream of urine and dribbling of urine are at baseline.? He wears diapers because of constant leakage.? Denies chest pain other than epigastric discomfort.? He has not had any falls.? No report of any fevers.? He does chew tobacco but denies swallowing any of it recently.? He spits it out.? Him and his at first thought that the coffee- ground appearance could be secondary to his chewing tobacco but he said it was different. Hospital Course Hospital Course Patient was admitted to the ICU for further evaluation and management of upper GI bleed leading to acute blood loss anemia, hypovolemic shock. He was resuscitated with IV fluids, started on PPIs and treated conservatively with n.p.o. Surgery was consulted and he underwent endoscopy on 10/21 which was consistent with severe lower third esophagitis without active bleeding. Post EGD his hemoglobin remained stable although patient continued to have severe odynophagia and dysphagia with solid foods. Patient responded well to liquid diet. Because of persistent odynophagia barium swallow was done which is consistent with severe distal esophageal stricture which is thought to be secondary to severe esophagitis. He has been discharged in hemodynamically stable condition on liquid full diet for next 2 weeks with advised to follow-up with surgery as an outpatient. Diet is to be advanced to mechanical soft only after surgical evaluation as an outpatient. If patient is still not able to tolerate solid foods in 2 weeks plan would most likely be to have a repeat endoscopy with balloon dilatation versus Dobbhoff feeding for next 1 month while esophagitis heals. He is to continue taking Protonix twice daily for 4 weeks along with Carafate before meals and at bedtime for 4 weeks. He is to transition over to oral Protonix 1 time a day after 4 weeks. During hospitalization he was also found to have elevated blood pressures for which amlodipine 5 mg daily was added. He was orthostatic negative on the day of discharge. Patient has been working well with physical therapy. Home health has been provided for safe discharge planning. Physical Exam Narrative: General: Tired appearing, in distress because of difficulty swallowing, AOx3, pallor present Head: Normocephalic. Atraumatic. EOM intact. Neck: No JVD. Cardiovascular: RRR. No gallops. No murmurs. Lungs: Breath sounds are slightly diminished in the bases, no use of accessory muscles, no crackles or wheezes. Skin: No jaundice. No rashes. Abdomen: Normal bowel sounds, abdomen soft and nontender. Extremities: No cyanosis or clubbing. Musculoskeletal: No swollen or erythematous joints. Neurological: Moves all 4 extremities. No myoclonus. Urinary Catheter Management: Dean: Cath Placed During This Visit: yes Reason for Continuing Indwelling Catheter: Accurate Measurement of Urinary Output in Critically Ill Patients Urinary Catheter Date of Insertion: 10/21/22 Urinary Catheter Time of Insertion: 07:45 Discharge Data Studies Completed and Pending Completed Studies During Hospitalization Category Date Time Status FL barium swallow modifd [id number] Routine Exams 10/24/22 17:08 Completed Pathology: Surgical [PTH] Routine Pth 10/21/22 11:06 Completed Laboratory Results WBC 8.56 10^3/uL (3.29-11.43) 10/24/22 04:03 RBC 3.51 10^6/uL (3.85-5.65) L 10/24/22 04:03 Hgb 9.70 g/dL (11.27-16.99) L 10/24/22 04:03 Hct 31.0 % (37-53) L 10/24/22 04:03 MCV 88.3 fl (82-101) 10/24/22 04:03 MCH 27.6 pg (27-33) 10/24/22 04:03 MCHC 31.3 g/dL (30-55) 10/24/22 04:03 RDW 15.2 % (12.1-15.1) H 10/24/22 04:03 Plt Count 246 10^3/cmm (157-399) 10/24/22 04:03 MPV 11.3 fL (7.4-10.4) H 10/24/22 04:03 Neut % (Auto) 65.8 % 10/24/22 04:03 Lymph % (Auto) 18.3 % 10/24/22 04:03 Howell % (Auto) 11.7 % 10/24/22 04:03 Eos % (Auto) 3.6 % 10/24/22 04:03 Baso % (Auto) 0.4 % 10/24/22 04:03 Neut # (Auto) 5.63 10^3/uL (1.8-7.7) 10/24/22 04:03 Lymph # (Auto) 1.6 10^3/uL (0.8-4.8) 10/24/22 04:03 Howell # (Auto) 1.0 10^3/uL (0.2-0.9) H 10/24/22 04:03 Eos # (Auto) 0.3 10^3/uL (0.0-0.8) 10/24/22 04:03 Baso # (Auto) 0.0 10^3/uL (0.0-0.1) 10/24/22 04:03 Nucleated RBC % (auto) 0 % 10/24/22 04:03 Nucleated RBCs # 0.0 /100WBC 10/24/22 04:03 Sodium 135 mmol/L (136-145) L 10/24/22 04:03 Potassium 3.9 mmol/L (3.5-5.1) 10/24/22 04:03 Chloride 104 mmol/L (98-107) 10/24/22 04:03 Carbon Dioxide 19 mmol/L (22-29) L 10/24/22 04:03 Anion Gap 15.9 (5-19) 10/24/22 04:03 BUN 15 mg/dL (8-23) 10/24/22 04:03 Creatinine 1.4 mg/dL (0.7-1.2) H 10/24/22 04:03 GFR Calculation Not Reportable 10/24/22 04:03 Glucose 98 mg/dL (65-115) 10/24/22 04:03 Estimat Average Glucose 128 10/24/22 04:03 Hemoglobin A1c 6.1 % (4.0-6.0) H 10/24/22 04:03 Calculated Osmolality 281 mOsm/kg (285-295) L 10/24/22 04:03 Calcium 8.2 mg/dL (8.5-10.5) L 10/24/22 04:03 Phosphorus 2.3 mg/dL (2.5-4.5) L 10/23/22 04:29 Iron 37 ug/dL (59-158) L 10/23/22 04:29 TIBC 296 mcg/dl 10/23/22 04:29 % Saturation 12.5 % (20-50) L 10/23/22 04:29 Unsat Iron Binding 259 ug/dL (112-347) 10/23/22 04:29 Total Bilirubin 0.3 mg/dL (0.15-1.2) 10/24/22 04:03 AST 17 U/L (0-40) 10/24/22 04:03 ALT 9 U/L (0-41) 10/24/22 04:03 Alkaline Phosphatase 96 U/L (40-130) 10/24/22 04:03 Total Protein 6.4 g/dL (6.6-8.7) L 10/24/22 04:03 Albumin 3.6 g/dL (3.5-5.2) 10/24/22 04:03 Globulin 2.8 g/dL (1.3-4.6) 10/24/22 04:03 Triglycerides 164 mg/dL (0-150) H 10/24/22 04:03 Cholesterol 164 mg/dL (0-200) 10/24/22 04:03 LDL Cholesterol, Calc 99 mg/dL (50-129) 10/24/22 04:03 Total VLDL Cholesterol 33 mg/dL (0-30) H 10/24/22 04:03 HDL Cholesterol 32 mg/dL (60-100) L 10/24/22 04:03 Cholesterol/HDL Ratio 5.13 mg/dL (1.0-5.00) H 10/24/22 04:03 Vitamin B12 613 pg/mL (232-1245) 10/23/22 04:29 Folate 4.1 ng/mL (4.5-32.2) L 10/24/22 04:03 TSH 5.70 uIU/mL (0.27-4.20) H 10/23/22 04:29 TSH Cancelled 10/23/22 04:29 Free T4 0.89 ng/dL (0.82-1.77) 10/24/22 04:03 Free T3 2.2 PG/ML (2.0-4.4) 10/24/22 04:03 Urine Color Yellow (Yellow) 10/21/22 09:00 Urine Appearance Clear (CLEAR) 10/21/22 09:00 Urine pH 6 (5-7) 10/21/22 09:00 Ur Specific [place] 1.015 (1.005-1.030) 10/21/22 09:00 Urine Protein 1+ (Negative) H 10/21/22 09:00 Urine Glucose (UA) Norm (Normal) 10/21/22 09:00 Urine Ketones 1+ (Negative) H 10/21/22 09:00 Urine Blood 2+ (Negative) H 10/21/22 09:00 Urine Nitrate Negative (Negative) 10/21/22 09:00 Urine Bilirubin Neg (Negative) 10/21/22 09:00 Urine Urobilinogen Norm mg/dL (Negative) 10/21/22 09:00 Ur Leukocyte Esterase Negative (Negative) 10/21/22 09:00 Urine RBC 5-10 /hpf (0-2) H 10/21/22 09:00 Urine WBC None /hpf (0-5) 10/21/22 09:00 Ur Squamous Epith Cells 0-4 /hpf (0-5) H 10/21/22 09:00 Amorphous Sediment Not Reportable 10/21/22 09:00 Urine Bacteria Trace /hpf (NONE) 10/21/22 09:00 Blood Type O Positive 10/21/22 07:24 Rho(D) Type Positive 10/21/22 07:24 Antibody Screen Negative 10/21/22 07:24 Imaging Barium swallow: Radiologist's impression: Patient swallowed food consistencies without difficulty. Mild cricopharyngeal spasm. No aspiration or laryngeal penetration. Patient did experience pain and discomfort in the mid chest. Mild dilatation of the distal esophagus with a focal hourglass shaped area of narrowing. Hiatal hernia. Barium tablet was able to proceed through the focal area of moderate stricture of the distal esophagus. IMPRESSION: 1. No aspiration or laryngeal penetration. 2. Moderate distal esophageal stricture. Focal stricture is resulting in mild proximal dilatation of the esophagus. Patient has undergone a recent endoscopy of the esophagus which demonstrated esophagitis. Please see speech therapist report also for recommendations. Vitals Last Vital Signs Temp 98.6 F 10/25/22 08:00 Pulse 75 10/25/22 08:00 Resp 16 10/25/22 08:00 BP 154/78 10/25/22 08:00 Pulse Ox 96 10/25/22 08:00 O2 Del Method Room Air 10/25/22 04:21 O2 Flow Rate 2 10/22/22 04:00 Discharge Plan Discharge Patient Disposition: Home Health Service Condition: Stable Prescriptions: New pantoprazole 40 mg Tablet,Delayed Release (Dr/Ec) 40 mg PO BID 28 Days Qty: 56 0RF Rx Instructions: Take Protonix 40 mg twice daily for next 4 weeks followed by once daily. folic acid 1 mg Tablet 1 mg PO BID Qty: 60 0RF sucralfate 100 mg/mL Suspension 1 g PO AC&BEDTIME 28 Days Qty: 1000 0RF amlodipine 5 mg tablet 5 mg PO DAILY Qty: 30 0RF Continued tamsulosin 0.4 mg capsule 0.4 mg PO BEDTIME lactulose 10 gram/15 mL solution 15 ml PO DAILY PRN (Reason: Constipation) Mariana-Yelena Heartburn-Gas 750-80 mg Tablet,Chewable 1 tab PO TID PRN (Reason: Heartburn) Held aspirin 81 mg Tablet,Delayed Release (Dr/Ec) 81 mg PO QAM Hold Instructions: Resume on 11/01/22. Discharge Orders: Discharge Order (Routine); Ordered 10/25/22 Ordered By: Rylan Delatorre [place] [facility] [place] [Outside] Thomas Roberts DO [Physician] - 2 weeks (We have notified your physician's clinic of the need for a follow-up appointment to be scheduled. If you have not heard from them within the next 2 business days, please call them directly. You may also reach out to our car wash manager at [phone] and she can assist you.) Errol Richard MD [Primary Care Provider] - 10/30/22 3:30 pm Discharge Diet: Full LIquid Discharge Activity: Resume usual activity and Increase activity as tolerated Patient Instructions: Sucralfate (By mouth), Folic Acid (By mouth), Amlodipine (By mouth), Pantoprazole (By mouth), Esophagitis (GEN), GI Discharge Instructions, Opioid Safety Activity Restrictions/Additional Instructions: Continue full liquid diet going forward until seen by Dr. Roberts in his office. Follow-up with a primary care provider within next 2 weeks. Take Protonix 40 mg twice daily for 4 weeks followed by 40 mg daily. Take Carafate before meals and at bedtime for 4 weeks. Amlodipine 5 mg daily has been added to your medication list. Please check your blood pressure daily at home maintain a blood pressure diary follow-up with your primary care provider for further adjustment of antihypertensives as needed. Discharge Attestations Time Spent in Discharge Care*: greater than 30 min Specific Discharge Activities: educating patient, educating and/or supporting family/caregiver, discussing with pcp/other providers, discussing with special education case manager/social workers/dc planners, documenting/other paperwork and evaluating patient/reviewing data Status at Discharge: Cognitive status at discharge: cognitively intact , Behavioral status at discharge: cooperative , Functional status at discharge: independent ambulation , Overall status at discharge: patient is progressing back to baseline Quality Metrics Clinical Quality Measures [ No reported AMI, CVA or VTE this stay] Coding Level of Care Code 90231 Total time (in minutes) for Discharge: 65 Diagnoses Upper GI bleed K92.2 Esophageal stricture K22.2 Orthostasis I95.1 GERD (gastroesophageal reflux disease) K21.9 Hypertension I10 Chronic kidney disease N18.9 Single kidney Z90.5 Benign prostatic hyperplasia with lower urinary tract symptoms N40.1 Chronic constipation K59.09 Nicotine dependence, chewing tobacco, uncomplicated F17.220
[2022-10-25] MEDS: amlodipine 5 mg Tablet PO (12:22)
== END 2022-10-25 13:00 | disposition home health service (06) | DRG 380 ==
LOC: ICU 10-24 15:16 → MEDSURG 10-24 22:00
PROVIDERS: Internal Medicine; Surgery; Admitting Provider Hospitalist; PCP Family Medicine; Visit Provider Student in an Organized Health Care Education/Training Program
PROC: 0DJ08ZZ Inspection of Upper Intestinal Tract, Via Natural or Artificial Opening Endoscopic (ICD-10-PCS; CPT 43235; principal; 2022-10-21 10:30)
DX: K22.11 Ulcer of esophagus with bleeding (principal); R57.1 Hypovolemic shock; D62 Acute posthemorrhagic anemia; K92.0 Hematemesis; K21.9 Gastro-esophageal reflux disease without esophagitis; K59.09 Other constipation; N40.1 Benign prostatic hyperplasia with lower urinary tract symptoms; N39.43 Post-void dribbling; R39.11 Hesitancy of micturition; F17.220 Nicotine dependence, chewing tobacco, uncomplicated; R13.10 Dysphagia, unspecified; K22.2 Esophageal obstruction; I12.9 Hypertensive chronic kidney disease with stage 1 through stage 4 chronic kidney disease, or unspecified chronic kidney disease; N18.31 Chronic kidney disease, stage 3a; F32.A Depression, unspecified; Z86.711 Personal history of pulmonary embolism; Z85.528 Personal history of other malignant neoplasm of kidney; K44.9 Diaphragmatic hernia without obstruction or gangrene; I95.1 Orthostatic hypotension; Z90.5 Acquired absence of kidney; E78.5 Hyperlipidemia, unspecified
CPT/HCPCS: 36415; 43239; 51702; 74230; 80048; 80053; 80061; 80069; 81001; 82607; 82746; 83036; 83540; 83550; 84439; 84443; 84481; 85014; 85018; 85025; 86850; 86900; 88305; 88342; 92611; 93005; 96376; 97110; 97116; 97161; 97530; C9113; J2405; J2704; J3480; J7030; J7040; J7799